=== PATIENT | male | born 1980 | race Two or more races ===

== ENCOUNTER 2017-06-29 06:57 | Day surgery (SDC) | payer OTHER ==
[~2017-06-29] VITALS: Ht 188 cm; Wt 79.4 kg
[2017-06-29] VITALS (9 sets, daily range): BP systolic 113–129; BP diastolic 64–97
--- NOTE | 2017-06-29 06:42 | Anethesia Preoperative Eval ---
Anesthesia Pre-op PMH/ROS General Date of Evaluation: Jun 29, 2017 Time of Evaluation: 06:41 Anesthesiologist: max ASA Score: ASA 2 Mallampati Score Class I : Soft palate, uvula, fauces, pillars visible Class II: Soft palate, uvula, fauces visible Class III: Soft palate, base of uvula visible Class IV: Only hard plate visible Mallampati Classification: Class II Surgeon: bashir Diagnosis: gerd Surgical Procedure: egd/colonoscopy Anesthesia History: none Social History: current smoker Family History: no anesthesia problems Allergies: Coded Allergies: No Known Allergies (Unverified , 06/28/17) Medications: see eMAR Past Medical History Gastrointestinal/Genitourinary: Reports: GERD Neurologic/Psychiatric: Reports: depression/anxiety PSxH Narrative: orif right arm Anesthesia Pre-op Phys. Exam Physician Exam Constitutional: NAD Neurologic: CN 2-12 intact Cardiovascular: RRR Respiratory: CTA Gastrointestinal: S/NT/ND Airway Exam Mallampati Score: Class II MO: full Neck: supple TMD: 2fb ROM: full Teeth: intact Anesthesia Pre-op A/P Risk Assessment & Plan Assessment: asa2 Plan: mac Status Change Before Surgery: No Pre-Antibiotics Drug: ZULY Carrillo Jun 29, 2017 06:42
[2017-06-29] MEDS ORDERED: LR 1000ml 1,000 ML IVLG SCH (07:00)
[2017-06-29] MEDS ORDERED: OMEPRAZOLE PO (07:29)
[2017-06-29] MEDS ORDERED: ZANTAC150 MG ORAL (07:30)
[2017-06-29] MEDS ORDERED: Midazolam 2mg/2ml Inj IVP PRN (07:45)
[2017-06-29] MEDS ORDERED: Atropine Inj 1mg/10ml Syr IV PRN (07:45)
[2017-06-29] MEDS ORDERED: DiphenhydrAMINE 50mg/ml Inj IVP PRN (07:45)
[2017-06-29] MEDS ORDERED: fentaNYL 100 mcg/2 mL IV PRN (07:45)
[2017-06-29] MEDS ORDERED: [UNRECOGNIZED DRUG - REMARK] PO (08:00)
[2017-06-29] MEDS ORDERED: Lidocaine 1% MPF 10mg/ml 5ml ONE (08:00)
[2017-06-29] MEDS ORDERED: Propofol 200mg/20ml IV ONE (08:00)
[2017-06-29] MEDS ORDERED: LR 1000ml ONE (08:00)
[2017-06-29] MEDS ORDERED: Esmolol 100mg/10ml Inj ONE (08:00)
--- NOTE | 2017-06-29 08:17 | Pre-Procedure Note/Attestation ---
Pre-Procedure Note/Attestation Complete Prior to Procedure Planned Procedure: not applicable Procedure Narrative: esophagogastroduodenoscopy colon Indications for Procedure Pre-Operative Diagnosis: GERD BRB Attestation I attest that I discussed the nature of the procedure; its benefits; risks and complications; and alternatives (and the risks and benefits of such alternatives ), prior to the procedure, with the patient (or the patient's legal territory account representative). I attest that, if there was a reasonable possibility of needing a blood transfusion, the patient (or the patient's legal territory account representative) was given the [facility] standardized written summary, pursuant to the Gianfranco Rohan Blood Safety Act ([place] Health and Safety Code # 1645, as amended). I attest that I re-evaluated the patient just prior to the surgery and that there has been no change in the patient's H&P, except as documented below: SAMUEL WALKER Jun 29, 2017 08:17
--- NOTE | 2017-06-29 08:18 | Short Stay Surgery H&P ---
History of Present Illness History of Present Illness Chief Complaint Please see typed H&P HPI Chuck Centeno is a 36 year old male who was admitted on for GERD Patient History Allergies: Coded Allergies: No Known Allergies (Unverified , 06/28/17) PAST MEDICAL HISTORY: Past Surgeries: Social History: Medication History Scheduled Ranitidine Hcl* (Zantac*), 150 MG ORAL TWICE A DAY, (Reported) ["antianxietypill"], Unknown Dose PO DAILY, (Reported) [Omeprazole ], 1 TAB-CAP PO DAILY, (Reported) Physical Exam Vital Signs Last Vital Signs Date Time Temp Pulse Resp B/P (MAP) Pulse Ox O2 Delivery O2 Flow Rate FiO2 06/29/17 07:53 97.9 69 18 113/64 100 Room Air 97.9 Plan Attestation Are the patient's medical conditions optimized for surgery? SAMUEL WALKER Jun 29, 2017 08:18
--- NOTE | 2017-06-29 10:12 | Endoscopy Procedure Note ---
Endoscopy Procedure Note General Indication for Procedure: GERD, BRB Procedures Performed: EGD, colonoscopy Operative Findings/Diagnosis: colon TV polyp, mod tics Specimen: yes Pt Tolerated Procedure Well: Yes Estimated Blood Loss: none Anesthesia Anesthesiologist: divine gutierrez Anesthesia: MAC Medications Medication Given: see anesthesia record Inserted Devices Implant(s) used?: No GI Core Measures 50 yrs or older w/o bx or poly: Not Applicable 10yrs. F/U not recommended: Not Applicable If not recommended, why?: SAMUEL WALKER Jun 29, 2017 10:12
--- NOTE | 2017-06-29 10:13 | Brief Operative Note ---
Immediate Post Operative Note Operative Note Chief Complaint: Anemia Pre-op Diagnosis: GERD BRB Procedure: esophagogastroduodenoscopycolon Post-op Diagnosis: colon TV polyp, mod tics Surgeon: bashir Anesthesiologist: divine gutierrez Anesthesia: MAC Specimen: yes Complications: none Condition: stable Fluids: recorded Estimated Blood Loss: none Drains: none Implant(s) used?: No SAMUEL WALKER Jun 29, 2017 10:13
--- NOTE | 2017-06-29 10:37 | Immediate Post-Op Evaluation ---
Immediate Post-Op Evalulation Immediate Post-Op Evalulation Procedure: egd/colonoscopy Date of Evaluation: Jun 29, 2017 Time of Evaluation: 09:21 IV Fluids: 600ml lr Blood Products: none Estimated Blood Loss: negligible Blood Pressure Systolic: 121 Blood Pressure Diastolic: 77 Pulse Rate: 68 Respiratory Rate: 18 O2 Sat by Pulse Oximetry: 100 Temperature (Fahrenheit): 97.7 Pain Score (1-10): 0 Nausea: No Vomiting: No Complications none Patient Status: awake, reacts, patent Hydration Status: adequate Drug: ZULY Carrillo Jun 29, 2017 10:37
--- NOTE | 2017-06-29 10:42 | 48 Hour Post Anesthesia Eval ---
Post Anesthesia Evaluation Procedure: egd/colonoscopy Date of Evaluation: Jun 29, 2017 Time of Evaluation: 09:23 Blood Pressure Systolic: 121 0: 81 Pulse Rate: 76 Respiratory Rate: 18 Temperature (Fahrenheit): 97.7 O2 Sat by Pulse Oximetry: 100 Airway: patent Nausea: No Vomiting: No Pain Intensity: 0 Hydration Status: adequate Cardiopulmonary Status: stable Mental Status/LOC: patient returned to baseline Post-Anesthesia Complications: none Follow-up care needed: N/A ZULY RAMIREZ Jun 29, 2017 10:42
--- NOTE | 2017-06-29 21:02 | Procedure Note ---
DATE OF PROCEDURE: 06/29/2017 PROCEDURE: Upper gastrointestinal endoscopy with biopsy as well as colonoscopy with biopsy. SURGEON: Darius Fletcher M.D. ANESTHESIA: Please see the separate anesthesiologist notes for details. PRE-ENDOSCOPIC DIAGNOSES: 1. Symptoms of refractory gastroesophageal reflux disease. 2. Hematochezia. POST-ENDOSCOPIC DIAGNOSES: 1. Normal upper endoscopy, status post random biopsies of the duodenum, antrum, lower esophagus, and mid esophagus. 2. Normal terminal ileum, status post random biopsies. 3. Normal right colon, status post random biopsies. 4. Diminutive polyp in the distal transverse colon, status post biopsy removal. 5. [id number] sigmoid diverticulosis. 6. Status post random biopsies of the left colon. 7. Mild internal hemorrhoids. DESCRIPTION OF PROCEDURE: The procedure, its risks, indications, alternatives, and possible complications including, but not limited to bleeding, infection, perforation, , and anesthesia complications were explained to the patient and informed consent was obtained. The diagnostic upper endoscope was introduced through oropharynx and advanced to the duodenum. The endoscope was then gradually withdrawn and the mucosa examined carefully. Examination of the upper gastrointestinal mucosa revealed no significant findings. Biopsies of the duodenum, antrum, lower esophagus, and mid esophagus were sent to pathology for review. The endoscope was removed. The rectal exam was done and the colonoscope was introduced in the rectum and advanced to the terminal ileum without difficulty. The colonoscope was then gradually withdrawn and the mucosa examined carefully. The terminal ileum and the right colon were normal. There was a diminutive polyp measuring about 3 mm in the distal transverse colon, which was biopsied off. The left colon showed [id number] diverticulosis. Random biopsies were obtained. Mild internal hemorrhoids were seen on retroflexed view. The colonoscope was removed. The patient was sent to recovery in good condition. COMPLICATIONS: None. RECOMMENDATIONS: 1. Follow up biopsy results. 2. Outpatient followup. 3. High-fiber diet. Darius Fletcher M.D. DR: MARI JOB#: [id number] CC:
== END 2017-06-29 10:00 | disposition home or self-care (01) ==
LOC: GAS 06:57
DX: K21.9 Gastro-esophageal reflux disease without esophagitis (principal); K57.90 Diverticulosis of intestine, part unspecified, without perforation or abscess without bleeding; K64.8 Other hemorrhoids; K63.5 Polyp of colon; K92.1 Melena; F32.9 Major depressive disorder, single episode, unspecified; F41.9 Anxiety disorder, unspecified; B96.81 Helicobacter pylori [H. pylori] as the cause of diseases classified elsewhere
CPT/HCPCS: 43239; 45380; J2704; J7120; 94003; 94150